=== PATIENT | female | born 1980 | race African-American/Black ===

== ENCOUNTER 2020-07-01 19:39 | Emergency (ER) | payer OTHER ==
[2020-07-01] MEDS ORDERED: KETOROLAC 15 MG/ML 1 ML VIAL IVP STA (20:57)
[2020-07-01] MEDS ORDERED: SODIUM CHLORIDE 0.9% 1,000 ML IV STA (20:57)
[2020-07-01] MEDS ORDERED: LABETALOL 5 MG/ML VIAL MDV IVP STA (20:57)
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
--- NOTE | 2020-07-01 21:19 | XR ---
EXAMINATION TYPE: XR chest 2V DATE OF EXAM: 07/01/2020 COMPARISON: NONE HISTORY: Pain TECHNIQUE: 2 views FINDINGS: Heart and mediastinum are normal. Lungs are clear. Diaphragm is normal. Bony thorax appears normal. IMPRESSION: Normal chest.
[2020-07-01 21:22] VITALS: RESP 16
[2020-07-01 21:35] LABS: Basophils # (A) 0.1 k/uL (0-0.2); Basophils % (A) 1 %; Eosinophils # (A) 0.5 k/uL (0-0.7); Eosinophils % (A) 5 %; HCT 35.5 % (34.0-46.0); HGB 11.2 gm/dL (11.4-16.0); Lymphocytes # (A) 4.3 k/uL (1.0-4.8); Lymphocytes % (A) 37 %; MCHC 31.6 g/dL (31.0-37.0); MCV 88.7 fL (80.0-100.0); Mean Platelet Volume 8.2; Monocytes # (A) 0.5 k/uL (0-1.0); Monocytes % (A) 4 %; Neutrophils # (A) 6.2 k/uL (1.3-7.7); Neutrophils % (A) 52 %; Platelet Count 264 k/uL (150-450); RBC 4.01 m/uL (3.80-5.40); RDW 14.5 % (11.5-15.5); WBC 11.8 k/uL (3.8-10.6)
[2020-07-01 21:44] LABS: ALT 14 U/L (4-34); AST 21 U/L (14-36); African American GFR (CKD) >90 (>60 ml/min/1.73 sqM); Albumin 3.9 g/dL (3.5-5.0); Alkaline Phosphatase 94 U/L (38-126); Anion Gap 5 mmol/L; Blood Urea Nitrogen 10 mg/dL (7-17); Calcium 9.2 mg/dL (8.4-10.2); Carbon Dioxide 32 mmol/L (22-30); Chloride 100 mmol/L (98-107); Glucose 158 mg/dL (74-99); Non-African American GFR(CKD) 84 (>60 ml/min/1.73 sqM); Sodium 137 mmol/L (137-145); Total Bilirubin 0.2 mg/dL (0.2-1.3); Total Protein 7.7 g/dL (6.3-8.2)
[2020-07-01 22:51] VITALS: BP 179/104; PULSE 87; TEMP 98.6
== END 2020-07-01 22:51 | disposition home or self-care (01) ==
LOC: EC 19:39
DX: I16.0 Hypertensive urgency (principal); Z79.890 Hormone replacement therapy; Z85.850 Personal history of malignant neoplasm of thyroid; Z86.14 Personal history of Methicillin resistant Staphylococcus aureus infection
CPT/HCPCS: 36415; 93005; 80053; 84484; 85025; 71046; 99284; 96374; 96375; 96361; J1885

== ENCOUNTER 2020-12-07 18:06 | Emergency (ER) | payer OTHER ==
[2020-12-07 19:46] VITALS: TEMP 98
[2020-12-07] MEDS ORDERED: hydrALAZINE HCL 20 MG/ML 1 ML VIAL IVP STA (22:28)
[2020-12-07] MEDS ORDERED: amLODIPine 10 MG TAB PO STA (22:29)
[2020-12-07] MEDS ORDERED: KETOROLAC 15 MG/ML 1 ML VIAL IVP STA (22:29)
--- NOTE | 2020-12-07 22:31 | ED ---
Recheck HPI - General Chief Complaint: Recheck/Abnormal Lab/Rx Stated Complaint: Elevated BP Time Seen by Provider: 12/07/20 21:53 Source: patient Mode of arrival: ambulatory Limitations: no limitations - History of Present Illness Initial Comments: 40-year-old female with hx of HTN, thyroid disorder presenting today for chief complaint of headache. Patient states that she has had a slight headache and felt off today. She said she is been out of her blood pressure medications for 3 days she states that this was concerning. Patient states that she's been out of actually all medications for the past 3 days and would like THEM refilled. Patient denies any strokelike symptoms such as visual changes nausea vomiting diplopia weakness sensation deficits dizziness speech changes facial asymmetry.Patient denies chest pain shortness of breath decreases or changes in urination back pain ripping tearing abdominal or back pain or dyspnea. Patient has no additional complaints or concerns on arrival she appearing well nontoxic in no acute distress. - Related Data Home Medications Medication Instructions Recorded Confirmed Levothyroxine Sodium [Synthroid] 100 mcg PO DAILY 07/01/20 07/01/20 Liothyronine Sodium [Cytomel] 5 mcg PO DAILY 07/01/20 07/01/20 Previous Rx's Medication Instructions Recorded Lisinopril-Hctz 20-25 mg 1 tab PO DAILY #30 tab 07/01/20 [Zestoretic 20-25] amLODIPine [Norvasc] 10 mg PO DAILY #30 tab 07/01/20 cloNIDine HCL [Catapres] 0.1 mg PO DAILY PRN #30 tab 07/01/20 glyBURIDE [Diabeta] 5 mg PO DAILY #30 tab 07/01/20 Levothyroxine Sodium 100 mcg PO DAILY 30 Days #30 tablet 12/07/20 Liothyronine Sodium [Cytomel] 5 mcg PO DAILY 30 Days #30 tab 12/07/20 amLODIPine [Norvasc] 10 mg PO DAILY 30 Days #30 tablet 12/07/20 cloNIDine HCL 0.1 mg PO DAILY PRN 30 Days #30 12/07/20 tablet Allergies Allergy/AdvReac Type Severity Reaction Status Date / Time No Known Allergies Allergy Verified 12/07/20 19:42 Review of Systems ROS Statement: Those systems with pertinent positive or pertinent negative responses have been documented in the HPI. ROS Other: All systems not noted in ROS Statement are negative. Past Medical History Past Medical History: Cancer, Diabetes Mellitus, Hypertension, Thyroid Disorder Additional Past Medical History / Comment(s): thyroid ca History of Any Multi-Drug Resistant Organisms: MRSA Date of last positivie culture/infection: 03/2020 MDRO Source:: urine Past Surgical History: Tubal Ligation Additional Past Surgical History / Comment(s): thyroidectomy Past Psychological History: Anxiety Smoking Status: Never smoker Past Alcohol Use History: None Reported Past Drug Use History: None Reported General Exam - General Exam Comments Initial Comments: General: The patient is awake and alert, in no distress Eye: +3 mm pupils are equal, round and reactive to light, extra-ocular movements are intact. No nystagmus. There is normal conjunctiva bilaterally. No signs of icterus. Ears, nose, mouth and throat: There are moist mucous membranes and no oral lesions. Neck: The neck is supple, there is no tenderness or JVD. Cardiovascular: There is a regular rate and rhythm. No murmur, rub or gallop is appreciated. Respiratory: Lungs are clear to auscultation, respirations are non-labored, breath sounds are equal. No wheezes, stridor, rales, or rhonchi. Gastrointestinal: Soft, non-distended, non-tender abdomen without masses or organomegaly noted. There is no rebound or guarding present. Musculoskeletal: Normal ROM, no tenderness. Strength 5/5. Sensation intact. Radial and DP pulses equal bilaterally 2+. Neurological: A&O x 3. 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 Able to follow simple verbal. Able to name a common object (pen). High quality, labial (pa) and lingual (la) speech. Low quality posterior pharynx/larynx (ga) voice sounds. Able to express general knowledge (days in a week). No hemineglect or inattention noted. Finger agnosia (-) and spatially oriented (identified L index finger touched R shoulder with L index finger). Light touch and temperature sensation present over the face, chest, abdomen, back, UE bilaterally, and LE bilaterally. Able to localize point during point localization b/l and extinction. No visible bulk atrophy, hypertrophy, fasciculations, or myoclonus of the UE or LE b/l. Full PROM in UE and LE b/l. Bilateral muscle strength 5/5 for the following muscles: deltoid, biceps, triceps, brachioradialis, wrist extensors/flexor, hip flexor, hip abductors/adductors, hamstrings, quadriceps, feet dorsiflexors/plantar flexors. Finger to nose, finger to the examiners finger, and heel to posada coordinated and accurate b/l. Coordinated and even demonstration of hand flip, finger to thumb, and toe tap b/l. Gait is coordinated and even in stride. Maintains balance with monopedal stance. (-) Romberg. (-) pronator drift. No nuchal rigidity. Skin: Skin is warm and dry and no rashes or lesions are noted. Psychiatric: Cooperative, appropriate mood & affect, normal judgment. Limitations: no limitations Course Vital Signs 12/07/20 12/07/20 12/07/20 19:42 21:55 23:24 Temperature 98.0 F Pulse Rate 96 89 84 Respiratory 16 16 15 Rate Blood Pressure 201/110 202/110 158/92 O2 Sat by Pulse 99 100 98 Oximetry Medical Decision Making - Medical Decision Making Refused imaging. no focal deficits. patient requesting med refill and dc. she w as givne dose of anti-hypertensive medications in the emergency department. Her blood pressure improved patient appears well nontoxic at this time I fishes For discharge with outpatient primary care follow-up. Return parameters were discussed the patient was discharged appearing well but any providers agreeable to this care plan Disposition Clinical Impression: Medication refill, Elevated blood pressure reading Disposition: HOME SELF-CARE Condition: Good Instructions (If sedation given, give patient instructions): Chronic Hypertension (ED), DASH Eating Plan (ED) Additional Instructions: Please use medication as discussed. Please follow-up with family doctor in the next 2 days. return for worsening headaches or symptoms of stroke as discussed, or uncontrolled blood pressure despite medication use. Please return to emergency room if the symptoms increase or worsen or for any other concerns. Prescriptions: cloNIDine HCL 0.1 mg PO DAILY PRN 30 Days #30 tablet PRN Reason: Blood Pressure - High Liothyronine Sodium [Cytomel] 5 mcg PO DAILY 30 Days #30 tab Levothyroxine Sodium 100 mcg PO DAILY 30 Days #30 tablet amLODIPine [Norvasc] 10 mg PO DAILY 30 Days #30 tablet Is patient prescribed a controlled substance at d/c from ED?: No Referrals: None,Stated [Primary Care Provider] - 1-2 days [facility] [NON-STAFF] - 1-2 days Time of Disposition: 22:31
[2020-12-07 23:25] VITALS: BP 158/92; PULSE 84; RESP 15
== END 2020-12-07 23:32 | disposition home or self-care (01) ==
LOC: EC 18:06
DX: Z76.0 Encounter for issue of repeat prescription (principal); I10 Essential (primary) hypertension; E11.9 Type 2 diabetes mellitus without complications; Z85.850 Personal history of malignant neoplasm of thyroid; F41.9 Anxiety disorder, unspecified
CPT/HCPCS: 99283; 96374; 96375; J0360; J1885

== ENCOUNTER 2021-03-01 18:26 | Emergency (ER) | payer OTHER ==
[2021-03-01 18:45] VITALS: BP 136/85; PULSE 87; RESP 16; TEMP 98.9
--- NOTE | 2021-03-01 20:43 | XR ---
Result: History: Pain. Comparison: None available. Technique: 3 views of the left ankle. Findings: No acute fracture or dislocation is seen. The visualized osseous structures are in anatomic alignmen t. The talar dome is intact and the ankle mortise is congruent. The joint spaces are preserved. Impression: No acute osseous abnormality.
--- NOTE | 2021-03-01 20:56 | ED ---
Lower Extremity Injury HPI - General Chief Complaint: Extremity Injury, Lower Stated Complaint: fall, lt leg/foot injury Source: patient Mode of arrival: wheelchair Limitations: no limitations - History of Present Illness Initial Comments: 40-year-old male presents to emergency Department with a chief complaint of left ankle pain x 2 hours. Patient reports about 2 hours prior to arrival she had an inversion injury of the left ankle. Patient reports she tripped over an object causing her injury. She reports the pain is sharp in nature, exacerbated with weightbearing and inversion. Denies taking any medication to alleviate the symptoms. She denies any paresthesias or weakness to the foot. However, she does report limited range of motion. - Related Data Home Medications Medication Instructions Recorded Confirmed Levothyroxine Sodium [Synthroid] 100 mcg PO DAILY 07/01/20 07/01/20 Liothyronine Sodium [Cytomel] 5 mcg PO DAILY 07/01/20 07/01/20 Previous Rx's Medication Instructions Recorded Lisinopril-Hctz 20-25 mg 1 tab PO DAILY #30 tab 07/01/20 [Zestoretic 20-25] amLODIPine [Norvasc] 10 mg PO DAILY #30 tab 07/01/20 cloNIDine HCL [Catapres] 0.1 mg PO DAILY PRN #30 tab 07/01/20 glyBURIDE [Diabeta] 5 mg PO DAILY #30 tab 07/01/20 Levothyroxine Sodium 100 mcg PO DAILY 30 Days #30 tablet 12/07/20 Liothyronine Sodium [Cytomel] 5 mcg PO DAILY 30 Days #30 tab 12/07/20 amLODIPine [Norvasc] 10 mg PO DAILY 30 Days #30 tablet 12/07/20 cloNIDine HCL 0.1 mg PO DAILY PRN 30 Days #30 12/07/20 tablet Allergies Allergy/AdvReac Type Severity Reaction Status Date / Time No Known Allergies Allergy Verified 03/01/21 18:43 Review of Systems ROS Statement: Those systems with pertinent positive or pertinent negative responses have been documented in the HPI. ROS Other: All systems not noted in ROS Statement are negative. Past Medical History Past Medical History: Cancer, Diabetes Mellitus, Hypertension, Thyroid Disorder Additional Past Medical History / Comment(s): thyroid ca History of Any Multi-Drug Resistant Organisms: MRSA Date of last positivie culture/infection: 03/2020 MDRO Source:: urine Past Surgical History: Tubal Ligation Additional Past Surgical History / Comment(s): thyroidectomy Past Psychological History: Anxiety Smoking Status: Never smoker Past Alcohol Use History: None Reported Past Drug Use History: None Reported General Exam Limitations: no limitations General appearance: alert, in no apparent distress, obese Head exam: Present: atraumatic, normocephalic, normal inspection Eye exam: Present: normal appearance, PERRL, EOMI Pupils: Present: normal accommodation ENT exam: Present: normal exam, normal oropharynx, mucous membranes moist Neck exam: Present: normal inspection, full ROM. Absent: tenderness, lymphadenopathy Respiratory exam: Present: normal lung sounds bilaterally. Absent: respiratory distress, wheezes, rales, rhonchi, stridor, chest wall tenderness, accessory muscle use Cardiovascular Exam: Present: regular rate, normal rhythm, normal heart sounds. Absent: systolic murmur, diastolic murmur Extremities exam: Present: normal inspection, tenderness (Lateral malleoli tenderness), normal capillary refill. Absent: full ROM (Limited range of motion with inversion of the left ankle), pedal edema, joint swelling, calf tenderness Back exam: Present: normal inspection, full ROM. Absent: tenderness, CVA tenderness (R), CVA tenderness (L) Neurological exam: Present: alert, oriented X3 Psychiatric exam: Present: normal affect, normal mood Skin exam: Present: warm, dry, intact, normal color Course Vital Signs 03/01/21 18:43 Temperature 98.9 F Pulse Rate 87 Respiratory 16 Rate Blood Pressure 136/85 O2 Sat by Pulse 100 Oximetry Medical Decision Making - Medical Decision Making 40-year-old female presents to the emergency room with a chief complaint of left ankle pain. On physical examination, patient is neurovascularly intact. X-ray shows no acute findings. John wrap will be applied. She was advised to rest, ice, compression and elevation. Advised to follow-up with graves registration specialist. Strict return parameters were thoroughly discussed with patient is attending agreeable. Case discussed with physician. Disposition Clinical Impression: Ankle sprain Disposition: HOME SELF-CARE Condition: Stable Instructions (If sedation given, give patient instructions): Ankle Sprain (ED) Additional Instructions: Follow-up with graves registration specialist. Return to emergency department if symptoms worsen. Is patient prescribed a controlled substance at d/c from ED?: No Referrals: Donald Delarosa MD [Primary Care Provider] - 1-2 days Goodmanson,John, DO [Doctor of Osteopathic Medicine] - 1-2 days Time of Disposition: 20:55
== END 2021-03-01 21:11 | disposition home or self-care (01) ==
LOC: EC 18:26
DX: S93.402A Sprain of unspecified ligament of left ankle, initial encounter (principal); E11.9 Type 2 diabetes mellitus without complications; I10 Essential (primary) hypertension; F41.9 Anxiety disorder, unspecified; Z79.84 Long term (current) use of oral hypoglycemic drugs; W18.09XA Striking against other object with subsequent fall, initial encounter
CPT/HCPCS: 99283

== ENCOUNTER 2021-04-30 18:46 | Emergency (ER) | payer OTHER ==
[2021-04-30 18:58] VITALS: BP 152/89; PULSE 96; TEMP 98.2
[2021-04-30 19:32] VITALS: RESP 18
--- NOTE | 2021-04-30 19:43 | ED ---
General Adult HPI - General Chief complaint: Upper Respiratory Infection Stated complaint: Chills,Exposed to covid Time Seen by Provider: 04/30/21 19:11 Source: patient Mode of arrival: ambulatory Limitations: no limitations - History of Present Illness Initial comments: 40-year-old female with a past medical history of diverticulitis, thyroid cancer, hypertension presents to the emergency room for a chief complaint of covid exposure. Patient reports her neighbor tested positive for coronavirus. She just found out about this and then noticed her symptoms. Patient states that she has had some nasal congestion and body aches. Denies fever. Patient also reports she needs a test to go to [facility] on Monday. Patient has no other complaints at this time including shortness of breath, chest pain, abdominal pain, nausea or vomiting, headache, or visual changes. - Related Data Home Medications Medication Instructions Recorded Confirmed Levothyroxine Sodium [Synthroid] 100 mcg PO DAILY 07/01/20 07/01/20 Liothyronine Sodium [Cytomel] 5 mcg PO DAILY 07/01/20 07/01/20 Previous Rx's Medication Instructions Recorded Lisinopril-Hctz 20-25 mg 1 tab PO DAILY #30 tab 07/01/20 [Zestoretic 20-25] amLODIPine [Norvasc] 10 mg PO DAILY #30 tab 07/01/20 cloNIDine HCL [Catapres] 0.1 mg PO DAILY PRN #30 tab 07/01/20 glyBURIDE [Diabeta] 5 mg PO DAILY #30 tab 07/01/20 Levothyroxine Sodium 100 mcg PO DAILY 30 Days #30 tablet 12/07/20 Liothyronine Sodium [Cytomel] 5 mcg PO DAILY 30 Days #30 tab 12/07/20 amLODIPine [Norvasc] 10 mg PO DAILY 30 Days #30 tablet 12/07/20 cloNIDine HCL 0.1 mg PO DAILY PRN 30 Days #30 12/07/20 tablet Allergies Allergy/AdvReac Type Severity Reaction Status Date / Time No Known Allergies Allergy Verified 04/30/21 18:59 Review of Systems ROS Statement: Those systems with pertinent positive or pertinent negative responses have been documented in the HPI. ROS Other: All systems not noted in ROS Statement are negative. Past Medical History Past Medical History: Cancer, Diabetes Mellitus, Hypertension, Thyroid Disorder Additional Past Medical History / Comment(s): thyroid ca History of Any Multi-Drug Resistant Organisms: MRSA Date of last positivie culture/infection: 03/2020 MDRO Source:: urine Past Surgical History: Tubal Ligation Additional Past Surgical History / Comment(s): thyroidectomy Past Psychological History: Anxiety Smoking Status: Never smoker Past Alcohol Use History: None Reported Past Drug Use History: None Reported General Exam Limitations: no limitations Course Vital Signs 04/30/21 04/30/21 18:55 19:31 Temperature 98.2 F Pulse Rate 96 Respiratory 19 18 Rate Blood Pressure 152/89 O2 Sat by Pulse 99 Oximetry Medical Decision Making - Medical Decision Making Estrada virus is negative. Vitals are stable. Patient is well-appearing. At this time patient will be discharged home to follow up with primary care. Will return here for any worsening symptoms. - Lab Data Lab Results 04/30/21 Range/Units 18:59 Coronavirus (PCR) Not Detected (Not Detectd) Disposition Clinical Impression: Lab test negative for COVID-19 virus, Sinusitis Disposition: HOME SELF-CARE Condition: Good Instructions (If sedation given, give patient instructions): Sinusitis (ED) Additional Instructions: Take [id number] cold and flu medications. Follow-up with your doctor in one to 2 days. Return to the emergency room for any worsening symptoms. Is patient prescribed a controlled substance at d/c from ED?: No Referrals: Donald Delarosa MD [Primary Care Provider] - 1-2 days Time of Disposition: 19:42
== END 2021-04-30 19:50 | disposition home or self-care (01) ==
LOC: EC 18:46
DX: J32.9 Chronic sinusitis, unspecified (principal); Z20.822 Contact with and (suspected) exposure to COVID-19; I10 Essential (primary) hypertension; E11.9 Type 2 diabetes mellitus without complications; F41.9 Anxiety disorder, unspecified; Z79.84 Long term (current) use of oral hypoglycemic drugs
CPT/HCPCS: 87635; 99283

== ENCOUNTER → 2021-06-30 | Outpatient (CLI) | payer OTHER | END | disposition home or self-care (01) | LOC: LABWHC1 14:41 | PROVIDERS: ATTEND Internal Medicine | DX: Z00.00 Encounter for general adult medical examination without abnormal findings (principal); Z20.822 Contact with and (suspected) exposure to COVID-19 | CPT/HCPCS: 87635; C9803 ==

== ENCOUNTER → 2021-07-06 | Outpatient (CLI) | payer OTHER | END | disposition home or self-care (01) | LOC: LABWHC1 14:22 | PROVIDERS: ATTEND Internal Medicine | DX: Z00.00 Encounter for general adult medical examination without abnormal findings (principal); Z20.822 Contact with and (suspected) exposure to COVID-19 | CPT/HCPCS: 87635 ==

== ENCOUNTER → 2021-07-21 | Outpatient (CLI) | payer OTHER | END | disposition home or self-care (01) | LOC: LABWHC1 13:43 | PROVIDERS: ATTEND Internal Medicine | DX: Z20.822 Contact with and (suspected) exposure to COVID-19 (principal); Z71.84 Encounter for health counseling related to travel | CPT/HCPCS: 87636 ==

== ENCOUNTER → 2022-02-28 | Outpatient (CLI) | payer OTHER ==
--- NOTE | 2022-02-28 12:27 | XR ---
EXAMINATION TYPE: XR Hip Complete RT DATE OF EXAM: 02/28/2022 COMPARISON: None HISTORY: 2 view right hip TECHNIQUE: Right hip pain and FINDINGS: Femoral head articulates with the acetabulum. No acute fracture or dislocation is evident. Joint space appears preserved. Follow up exams can be performed 7-10 days from acute trauma for jose francisco nued pain IMPRESSION: 1. No acute fracture right hip
[2022-02-28 18:35] LABS: Basophils # (A) 0.08 X 10*3/uL (0.00-0.10); Eosinophils # (A) 1.02 X 10*3/uL (0.04-0.35); Eosinophils % (A) 12.5 %; HCT 36.7 % (37.2-46.3); HGB 11.2 g/dL (12.0-15.0); Immature Grans, Automated 0.2 %; Lymphocytes # (A) 2.59 X 10*3/uL (0.90-5.00); Lymphocytes % (A) 31.9 %; MCH 27.9 pg (27.0-32.0); MCHC 30.5 g/dL (32.0-37.0); MCV 91.3 fL (80.0-97.0); Monocytes # (A) 0.36 X 10*3/uL (0.20-1.00); Monocytes % (A) 4.4 %; NRBC Per 100 WBC 0 /100 WBCS (0.0-0.0); Neutrophils # (A) 4.06 X 10*3/uL (1.80-7.70); Platelet Count 268 X 10*3/uL (140-440); RBC 4.02 X 10*6/uL (4.10-5.20); WBC 8.13 X 10*3/uL (4.50-10.00)
[2022-02-28 18:56] LABS: ALT 12 U/L (8-44); AST 15 U/L (13-35); African American GFR (CKD) 120.6 (60.0-200.0); Albumin/Globulin Ratio 1.19 (1.60-3.17); Alkaline Phosphatase 109 U/L (41-126); BUN/Creat Ratio 13.06 Ratio (12.00-20.00); Blood Urea Nitrogen 9.4 mg/dL (9.0-27.0); Carbon Dioxide 26.3 mmol/L (20.0-27.5); Chloride 101 mmol/L (96-109); Chol/HDL Ratio 5.19 Ratio; Globulin 3.4 g/dL (1.6-3.3); Glucose 167 mg/dL (70-110); LDL Cholesterol,Calculated 121.5 mg/dL (0.0-131.0); Potassium 3.7 mmol/L (3.5-5.5); Sodium 138 mmol/L (135-145); Total Protein 7.4 g/dL (6.2-8.2)
== END | disposition home or self-care (01) ==
LOC: LABWHC1 10:55
PROVIDERS: ATTEND Internal Medicine
DX: E11.9 Type 2 diabetes mellitus without complications (principal); E89.0 Postprocedural hypothyroidism; M25.551 Pain in right hip
CPT/HCPCS: 36415; 73502; 80053; 80061; 83036; 84439; 84443; 85025